=== PATIENT | male | born 1960 | race Caucasian/White ===

== ENCOUNTER → 2017-08-02 | Outpatient (REF) ==
[~2017-08-02] MED LIST: CYCL10TA29 PO; HYDR-4309 PO
--- NOTE | 2017-08-02 15:06 | RADIOLOGY IMAGING REPORT ---
FACILITY: [facility] [place] PATIENT NAME: Sulaiman Rodriguez : 1960 MR: [id number] V: [id number] EXAM DATE: ORDERING PHYSICIAN: TJ KERR TECHNOLOGIST: Location: [facility] Patient: Sulaiman Rodriguez : 1960 Visit/Account:[id number] Date of Sevice: 08/02/2017 Examination: CHEST PA AND LAT Comparison: None. History: Cough. Smoker. Findings: Pulmonary hyperexpansion. No consolidation, nodule, or peribronchial inflammation. No pneum othorax, edema, or effusion. No acute osseous normality. IMPRESSION: Pulmonary hyperexpansion. No other findings of acute or chronic cardiopulmonary disease. Report Dictated By: Armond Esqueda MD at 08/02/2017 2:59 PM Report E-Signed By: Armond Esqueda MD at 08/02/2017 3:02 PM WSN:[id number]
== END ==
LOC: RAD 14:02
PROVIDERS: ATTEND Emergency Medicine
DX: R05 Cough (principal); F17.210 Nicotine dependence, cigarettes, uncomplicated
CPT/HCPCS: 71046

== ENCOUNTER → 2017-10-24 | Outpatient (REF) ==
--- NOTE | 2017-10-24 20:05 | RADIOLOGY IMAGING REPORT ---
FACILITY: [facility] PATIENT NAME: Sulaiman Rodriguez : 1960 MR: [id number] V: [id number] EXAM DATE: ORDERING PHYSICIAN: ABDOULAYE HE TECHNOLOGIST: Location: [facility] Patient: Sulaiman Rodriguez : 1960 Visit/Account:[id number] Date of Sevice: 10/24/2017 Examination: CERVICAL SPINE 2 OR 3 VIEW Comparison: None. History: Neck pain. No known injury. Findings: Cervical vertebral body height and alignment is within normal limits. Atlantoaxial alignmen t is maintained. Developmental fusion of the C6-C7 vertebral bodies and posterior neural arch. Modera tely advanced degenerative disc disease at C7-T1 with moderate degenerative change at C2-C3, C3-C4, a nd C5-C6. No prevertebral soft tissue thickening. Visualized airway is patent. Lung apices are clear. IMPRESSION: 1. No cervical vertebral body height loss or malalignment. 2. Multilevel degenerative disc disease greatest at C7-T1. 3. Developmental fusion of C6 and C7. Report Dictated By: Armond Esqueda MD at 10/24/2017 7:59 PM Report E-Signed By: Armond Esqueda MD at 10/24/2017 8:02 PM WSN:[id number]
--- NOTE | 2017-10-24 20:10 | RADIOLOGY IMAGING REPORT ---
FACILITY: [facility] PATIENT NAME: Sulaiman Rodriguez : 1960 MR: [id number] V: [id number] EXAM DATE: ORDERING PHYSICIAN: ABDOULAYE HE TECHNOLOGIST: Location: [facility] Patient: Sulaiman Rodriguez : 1960 Visit/Account:[id number] Date of Sevice: 10/24/2017 Examination: LUMBAR SPINE 2 OR 3 VIEW Comparison: 05/06/2015 History: Low back pain. No known injury. Findings: 5 lumbar type vertebral bodies. T12 superior endplate compression with approximately 20% an terior vertebral body height loss has progressed since 2014. No other evidence of vertebral body heig ht loss or malalignment. Disc spaces are fairly well-preserved with multilevel mild endplate degenera tion. Aortic atherosclerosis. Sacroiliac joint alignment is within normal limits. IMPRESSION: 1. T12 superior endplate compression has progressed since 2014. Correlation to the site of patient's pain is recommended and if further imaging evaluation for an acute compression fracture is clinically indicated MRI could be performed. 2. Mild degenerative change. 3. Aortic atherosclerosis. Report Dictated By: Armond Esqueda MD at 10/24/2017 8:02 PM Report E-Signed By: Armond Esqueda MD at 10/24/2017 8:05 PM WSN:[id number]
== END ==
LOC: RAD 16:56
PROVIDERS: ATTEND Orthopaedic Surgery Orthopaedic Surgery of the Spine
DX: M54.5 Low back pain (principal); M54.2 Cervicalgia
CPT/HCPCS: 72040; 72100